=== PATIENT | male | born 1995 | race Two or more races ===

== ENCOUNTER 2021-01-02 01:44 | Emergency (ER) | payer OTHER ==
[~2021-01-02] VITALS: Ht 180.3 cm; Wt 99.8 kg
[2021-01-02 03:00] LABS: Urine WBC None Seen /hpf (0 - 3)
[2021-01-02 03:09] LABS: Basophils # (auto) 0.1 10 ^3/uL (0-0.2); Basophils % (auto) 0.7 % (0.0-2.0); Eosinophils # (auto) 0.1 10 ^3/uL (0-0.8); Eosinophils % (auto) 0.9 % (0.0-7.0); Hematocrit 44.6 % (41.0-53.0); Hemoglobin 15.8 g/dL (13.5-17.5); Lymphocytes # (auto) 3.5 10 ^3/uL (0.4-5.4); Lymphocytes % (auto) 41.7 % (10.0-50.0); Mean Corpuscular Hemoglobin 31.2 pg (28.0-32.0); Mean Corpuscular Hgb Conc. 35.5 g/dL (32.0-36.0); Monocytes # (auto) 0.4 10 ^3/uL (0-1.3); Neutrophils # (auto) 4.3 10 ^3/uL (1.6-8.6); Neutrophils % (auto) 51.7 % (37.0-80.0); Nucleated Red Blood Cells % 0.1 %; Platelet Count (auto) 165 10^3/uL (140-450); Red Blood Cells 5.06 10^6/uL (4.5-5.90); Red Cell Distribution Width 12.7 % (11.8-14.3); White Blood Cell 8.3 10^3/uL (4.4-10.8)
[2021-01-02 03:20] LABS: Urine Bacteria NONE SEEN /hpf (None Seen); Urine Blood Negative /uL (Negative); Urine Specific Gravity 1.025 (1.001-1.035)
[2021-01-02 03:22] LABS: INR 0.97 (0.9-1.15)
[2021-01-02 03:30] LABS: Calcium 8.6 mg/dL (8.5-10.1); Chloride 104 mmol/L (98-107); Lipase 79 U/L (73-393); Potassium 3.6 mmol/L (3.5-5.1); Sodium 138 mmol/L (136-145)
[2021-01-02 03:38] LABS: Alanine Aminotransferase 150 U/L (16-61); Alkaline Phosphatase 99 U/L (45-117); Anion Gap 8 (5-15); Aspartate Aminotransferase 45 U/L (15-37); BUN/Creatinine Ratio 17.8; Bilirubin, Total 0.3 mg/dL (0.2-1.0); Blood Urea Nitrogen 16 mg/dL (7-18); Carbon Dioxide 26 mmol/L (21-32); GFR African American 132 mL/min; GFR Non-African American 109 mL/min; Glucose 254 mg/dL (74-106); Magnesium 2.1 mg/dL (1.6-2.6); Total Protein 7.2 g/dL (6.4-8.2)
[2021-01-02 04:01] VITALS: BP 125/77
== END 2021-01-02 04:33 | disposition home or self-care (01) ==
LOC: ER 01:46
DX: F41.9 Anxiety disorder, unspecified (principal); I10 Essential (primary) hypertension; F17.210 Nicotine dependence, cigarettes, uncomplicated
CPT/HCPCS: 36415; 80053; 81001; 83605; 83690; 83735; 84484; 85025; 85610; 93005